=== PATIENT | female | born 1990 | race Caucasian/White ===

== ENCOUNTER 2019-06-20 14:55 | Emergency (ER) | payer BC ==
[~2019-06-20] VITALS: Ht 162.6 cm; Wt 94.4 kg
[2019-06-20] MEDS ORDERED: diphenhydrAMINE INJ 50MG/ML VIAL (J1200) IV STA (14:58)
[2019-06-20] MEDS ORDERED: methylPREDNISolone INJ 125 MG/2 ML VIAL (J2930) IV ONE (15:00)
[2019-06-20] MEDS ORDERED: FAMOTIDINE INJ 20MG/2ML VIAL (S0028) IVP ONE (15:00)
[2019-06-20] MEDS ORDERED: NEXI20CA PO (15:16)
[2019-06-20] MEDS ORDERED: SYNT25TA PO (15:16)
[2019-06-20 17:03] VITALS: BP 139/79
== END 2019-06-20 17:11 | disposition home or self-care (01) ==
LOC: M ED 14:55
DX: T61.781A Other shellfish poisoning, accidental (unintentional), initial encounter (principal); F41.9 Anxiety disorder, unspecified; K21.9 Gastro-esophageal reflux disease without esophagitis; Z79.899 Other long term (current) drug therapy; Z91.013 Allergy to seafood
CPT/HCPCS: 96374; 96375; 99284; J1200; J2930

== ENCOUNTER → 2019-08-25 | Outpatient (REF) | payer BC ==
[~2019-08-25] MED LIST: NEXI20CA PO; SYNT25TA PO
[2019-08-25 13:57] LABS: C REACTIVE PROTEIN QUANTITATIV 0.88 MG/DL (0.00-0.30); PERCENT SATURATION 9.9 % (13.2-45.0)
[2019-08-25 14:06] LABS: FOLATE 7.7 NG/ML
== END ==
LOC: M LAB REF 13:04
PROVIDERS: ATTEND Internal Medicine
DX: K50.919 Crohn's disease, unspecified, with unspecified complications (principal)

== ENCOUNTER → 2020-08-03 | Outpatient (CLI) | payer SELFPAY | LOC: M LABSMTC 13:00 | PROVIDERS: ATTEND Pediatrics | DX: Z20.828 Contact with and (suspected) exposure to other viral communicable diseases (principal) ==

== ENCOUNTER → 2021-03-29 | Outpatient (CLI) | payer BC ==
[~2021-03-29] MED LIST changes: +CAMRTAB PO
== END ==
LOC: M LABSMTC 09:58
PROVIDERS: ATTEND Anesthesiology
DX: Z01.812 Encounter for preprocedural laboratory examination (principal); Z20.822 Contact with and (suspected) exposure to COVID-19

== ENCOUNTER 2021-04-03 06:45 | Day surgery (SDC) | payer BC ==
[~2021-04-03] VITALS: Ht 162.6 cm; Wt 87.5 kg
[~2021-04-03 06:45] MED LIST changes: +NS 1,000 ML IV ONE
[2021-04-03] MEDS ORDERED: propofoL 500 MG/50 ML VIAL As Ordered ONE (06:58)
[2021-04-03] MEDS ORDERED: fentaNYL 100 MCG/2 ML INJECTION (J3010) As Ordered ONE (07:03)
[2021-04-03] MEDS ORDERED: LIDOCAINE 2% 100MG/5ML SDV (FOR ANES.) As Ordered ONE (07:07)
--- NOTE | 2021-04-03 07:46 | ROOR ---
Patient Name: Florinda Jacome Procedure Date: 04/03/2021 7:32 AM Date of : 1990 Age: 30 Room: [facility] Gender: Female Note Status: Finalized Procedure: Upper Endoscopy + Biopsies Indications: Heartburn, Exclusion of Person's esophagus Providers: Bo Montelongo MD Referring MD: Jasmina Thurston DO Requesting Provider: Medicines: Monitored Anesthesia Care Complications: No immediate complications. Procedure: Pre-Anesthesia Assessment: - The heart rate, respiratory rate, oxygen saturations, blood pressure, adequacy of pulmonary ventilation, and response to care were monitored throughout the procedure. The Endoscope was introduced through the mouth, and advanced to the second part of duodenum. The upper GI endoscopy was accomplished without difficulty. The patient tolerated the procedure well. Findings: The Z-line was variable and was found 40 cm from the incisors. Multiple biopsies were obtained with cold forceps for evaluation to rule out Person's Esophagus randomly at the gastroesophageal junction. No other significant abnormalities were identified in a careful examination of the stomach. The exam of the duodenum was otherwise normal. Impression: - Z-line variable, 40 cm from the incisors. - Multiple biopsies were obtained at the gastroesophageal junction. - The examination was otherwise normal. Recommendation: - Patient has a contact number available for emergencies. The signs and symptoms of potential delayed complications were discussed with the patient. Return to normal activities tomorrow. Written discharge instructions were provided to the patient. - High fiber diet. - Discharge patient to home. - Follow an antireflux regimen. - Continue present medications. - Await pathology results. - Telephone GI clinic for pathology results in 1 week. - Return to referring physician. - The findings and recommendations were discussed with the patient's family. Procedure Code(s): --- Professional --- 52831, Esophagogastroduodenoscopy, flexible, transoral; with biopsy, single or multiple Diagnosis Code(s): --- Professional --- K22.8, Other specified diseases of esophagus R12, Heartburn CPT copyright 2019 [employer]. All rights reserved. The codes documented in this report are preliminary and upon router operator radial review may be revised to meet current compliance requirements. Bo Montelongo MD Bo Montelongo MD 04/03/2021 7:46:24 AM Electronically signed by Bo Montelongo MD Number of Addenda: 0 Note Initiated On: 04/03/2021 7:32 AM Estimated Blood Loss: Estimated blood loss: none.
--- NOTE | 2021-04-03 08:07 | ROOR ---
Patient Name: Florinda Jacome Procedure Date: 04/03/2021 7:33 AM Date of : 1990 Age: 30 Room: [id number] Gender: Female Note Status: Finalized Procedure: Total Colonoscopy to Cecum + ileoscopy Indications: High risk colon cancer surveillance: Personal history of colonic polyps Providers: Bo Montelongo MD Referring MD: Jasmina Thurston DO Requesting Provider: Medicines: Monitored Anesthesia Care Complications: No immediate complications. Procedure: Pre-Anesthesia Assessment: - The heart rate, respiratory rate, oxygen saturations, blood pressure, adequacy of pulmonary ventilation, and response to care were monitored throughout the procedure. The Colonoscope was introduced through the anus and advanced to the terminal ileum, with identification of the appendiceal orifice and IC valve. The colonoscopy was performed without difficulty. The patient tolerated the procedure well. The quality of the bowel preparation was excellent. Findings: The perianal and digital rectal examinations were normal. No other significant abnormalities were identified in a careful examination of the remainder of the colon. The terminal ileum appeared normal. The exam was otherwise without abnormality on direct and retroflexion views. Impression: - The examined portion of the ileum was normal. - The examination was otherwise normal on direct and retroflexion views. - No specimens collected. - The exam was otherwise normal to the cecum. Recommendation: - Patient has a contact number available for emergencies. The signs and symptoms of potential delayed complications were discussed with the patient. Return to normal activities tomorrow. Written discharge instructions were provided to the patient. - High fiber diet. - Discharge patient to home. - Continue present medications. - Repeat colonoscopy in 5 years for surveillance. - Return to referring physician. - The findings and recommendations were discussed with the patient's family. Procedure Code(s): --- Professional --- G0105, Colorectal cancer screening; colonoscopy on individual at high risk Diagnosis Code(s): --- Professional --- Z86.010, Personal history of colonic polyps CPT copyright 2019 [employer]. All rights reserved. The codes documented in this report are preliminary and upon collision repairer review may be revised to meet current compliance requirements. Bo Montelongo MD Bo Montelongo MD 04/03/2021 8:07:01 AM Electronically signed by Bo Montelongo MD Number of Addenda: 0 Note Initiated On: 04/03/2021 7:33 AM Estimated Blood Loss: Estimated blood loss: none.
[2021-04-03 08:17] VITALS: BP 126/72
[2021-04-03] MEDS ORDERED: propofoL 200 MG/20 ML VIAL As Ordered ONE (08:23)
== END 2021-04-03 08:43 | disposition home or self-care (01) ==
LOC: M OPP 06:45
PROVIDERS: ATTEND Internal Medicine Gastroenterology
DX: Z12.11 Encounter for screening for malignant neoplasm of colon (principal); Z86.010 Personal history of colon polyps; K22.8 Other specified diseases of esophagus; R12 Heartburn; Z79.899 Other long term (current) drug therapy; Z91.013 Allergy to seafood; Z88.8 Allergy status to other drugs, medicaments and biological substances
CPT/HCPCS: 43239; 45378; 88305; J3010

== ENCOUNTER → 2021-04-04 | Outpatient (REF) ==
[~2021-04-04] MED LIST changes: -NS 1,000 ML IV ONE
== END ==
LOC: M EMP 15:28
PROVIDERS: ATTEND Family Medicine
DX: Z20.828 Contact with and (suspected) exposure to other viral communicable diseases (principal)

== ENCOUNTER → 2021-04-24 | Outpatient (REF) | LOC: M EMP 08:56 | PROVIDERS: ATTEND Family Medicine | DX: Z20.828 Contact with and (suspected) exposure to other viral communicable diseases (principal) ==

== ENCOUNTER → 2021-04-25 | Outpatient (CLI) | payer BC ==
[2021-04-25 10:54] LABS: BASO % 0.3 % (0.0-1.0); EOS # 0.1 10^3/uL (0.0-0.5); EOS % 0.5 % (0.0-3.0); HEMATOCRIT 36.1 % (36.0-47.0); HEMOGLOBIN 11.3 g/dl (12.0-15.5); LYMPH # 1.7 10^3/uL (1.5-5.0); LYMPH % 17.8 % (24.0-44.0); MEAN CORPUSCULAR HEMOGLOBIN 26.4 pg (27.0-33.0); MEAN CORPUSCULAR HGB CONC 31.3 g/dl (32.0-36.5); MEAN CORPUSCULAR VOLUME 84.3 fl (80.0-96.0); MONO # 0.7 10^3/uL (0.0-0.8); NEUTROPHILS # 7.2 10^3/uL (1.5-8.5); NEUTROPHILS % 73.8 % (36.0-66.0); PLATELET COUNT, AUTOMATED 301 10^3/uL (150-450); RED BLOOD COUNT 4.28 10^6/uL (4.00-5.40); WHITE BLOOD COUNT 9.8 10^3/uL (4.0-10.0)
[2021-04-25 11:22] LABS: ALT/SGPT 22 U/L (12-78); BILIRUBIN,TOTAL 0.2 MG/DL (0.2-1.0); BLOOD UREA NITROGEN 7 MG/DL (7-18); CALCIUM LEVEL 8.7 MG/DL (8.5-10.1); CARBON DIOXIDE LEVEL 26 MEQ/L (21-32); CHLORIDE LEVEL 107 MEQ/L (98-107); CREATININE FOR GFR 0.62 MG/DL (0.55-1.30); FERRITIN 37 NG/ML (8-252); GLOMERULAR FILTRATION RATE > 60.0 (>60); GLUCOSE, FASTING 85 MG/DL (70-100); IRON (FE) 18 UG/DL (50-170); PERCENT SATURATION 3.9 % (13.2-45.0); POTASSIUM SERUM 3.9 MEQ/L (3.5-5.1); SODIUM LEVEL 142 MEQ/L (136-145); TOTAL IRON BINDING CAPACITY 460 UG/DL (250-450); TOTAL PROTEIN 7.4 GM/DL (6.4-8.2)
[2021-04-26 17:10] LABS: EBV AB TO NUCLEAR ANTIGEN <18.0 U/mL (0.0-17.9); EBV VIRAL CAPSID AG IgG <18.0 U/mL (0.0-17.9); EBV VIRAL CAPSID AG IgM <36.0 U/mL (0.0-35.9)
== END ==
LOC: M PLALAB 08:57
PROVIDERS: ATTEND Internal Medicine Infectious Disease
DX: J03.90 Acute tonsillitis, unspecified (principal); D50.9 Iron deficiency anemia, unspecified

== ENCOUNTER → 2021-04-25 | Outpatient (REF) | payer BC | LOC: M SFHCPLAZ 13:23 | PROVIDERS: ATTEND Internal Medicine Infectious Disease | DX: J03.90 Acute tonsillitis, unspecified (principal) ==

== ENCOUNTER → 2021-06-27 | Outpatient (REF) ==
[2021-06-27 09:07] LABS: RSV AMPLIFICATION NEGATIVE (NEGATIVE)
== END ==
LOC: M EMP 08:10
PROVIDERS: ATTEND Family Medicine
DX: Z20.822 Contact with and (suspected) exposure to COVID-19 (principal)

== ENCOUNTER → 2021-10-13 | Outpatient (REF) | LOC: M EMP 15:40 | PROVIDERS: ATTEND Family Medicine | DX: Z20.828 Contact with and (suspected) exposure to other viral communicable diseases (principal) ==

== ENCOUNTER → 2021-10-16 | Outpatient (REF) | LOC: M EMP 11:17 | PROVIDERS: ATTEND Family Medicine | DX: Z20.822 Contact with and (suspected) exposure to COVID-19 (principal) ==

== ENCOUNTER → 2021-10-17 | Outpatient (REF) | LOC: M EMP 10:04 | PROVIDERS: ATTEND Family Medicine | DX: Z20.822 Contact with and (suspected) exposure to COVID-19 (principal) ==

== ENCOUNTER → 2021-12-01 | Outpatient (REF) | LOC: M EMP 10:15 | PROVIDERS: ATTEND Family Medicine | DX: Z20.822 Contact with and (suspected) exposure to COVID-19 (principal) ==

== ENCOUNTER → 2025-02-05 | Outpatient (RCR) | LOC: M EMPSKH 01-04 13:00 | PROVIDERS: ATTEND Family Medicine | DX: Z11.52 Encounter for screening for COVID-19 (principal) ==